=== PATIENT | female | born 1945 | race Native Hawaiian/Other Pacific Islander ===

== ENCOUNTER 2023-03-18 14:18 | Outpatient (CLI) | payer OTHER | END 2023-03-18 20:51 | disposition home or self-care (01) | LOC: RAD 14:18 | PROVIDERS: ATTEND Physician Assistant | DX: M25.562 Pain in left knee (principal) ==

== ENCOUNTER 2023-04-23 13:41 | Outpatient (CLI) | payer OTHER | END 2023-04-23 18:57 | disposition home or self-care (01) | LOC: RAD 13:41 | PROVIDERS: ATTEND Physician Assistant | DX: M25.562 Pain in left knee (principal) ==

== ENCOUNTER 2023-05-28 13:04 | Outpatient (CLI) | payer OTHER | END 2023-05-28 20:48 | disposition home or self-care (01) | LOC: RAD 13:04 | PROVIDERS: ATTEND Orthopaedic Surgery | DX: S82.012A Displaced osteochondral fracture of left patella, initial encounter for closed fracture (principal); Y92.89 Other specified places as the place of occurrence of the external cause ==